=== PATIENT | male | born 1980 | race Caucasian/White ===

== ENCOUNTER 2019-03-31 07:56 | Day surgery (SDC) | payer OTHER ==
[~2019-03-31 07:56] MED LIST: DEXAMETHASONE 20 MG/5 ML (4 MG/ML SOL) ONE; FENTANYL 250 MCG/ 5ML SOL ONE; LIDOCAINE HCL 1% MPF 30 SOL ONE; MIDAZOLAM 2 MG/2 ML SOL ONE; ONDANSETRON HCL 4 MG/2 ML SOL ONE; PROPOFOL 10 MG/ML 200 MG/20 ML EMU IV ONE
[2019-03-31] MEDS: BUPIVACAINE/EPI 0.25% 50 ML SOL ONE ×3 (09:32→09:50)
[2019-03-31] MEDS ORDERED: KETOROLAC TROMETHAMINE 30 MG/ML SOL ONE (09:49)
[2019-03-31 10:08] VITALS: RESP 16
[2019-03-31 10:50] VITALS: O2SAT 95
[2019-03-31 11:00] VITALS: TEMP 97.1
[2019-03-31] MEDS ORDERED: APAP/HYDROCODONE 1 EACH TABLET ONE (11:06)
[2019-03-31 11:52] VITALS: BP 143/89; PULSE 68
== END 2019-03-31 11:40 | disposition home or self-care (01) | DRG 950 ==
LOC: SURG 07:56
PROVIDERS: ATTEND Orthopaedic Surgery
DX: S83.242D Other tear of medial meniscus, current injury, left knee, subsequent encounter (principal)
CPT/HCPCS: J1100; J1885; J2250; J2405; J3010; A9270-GY; J2001; J2704